=== PATIENT | female | born 1955 | race Caucasian/White ===

== ENCOUNTER 2018-08-07 20:21 | Emergency (ER) | payer MEDICAID ==
[~2018-08-07] VITALS: Ht 144.8 cm; Wt 65.9 kg
[2018-08-07 20:57] VITALS: Ht 144.8 cm; Wt 65.9 kg
[2018-08-07] MEDS ORDERED: SOD CHLORIDE 0.9% 1,000 ML IV STA (21:18)
[2018-08-07] MEDS ORDERED: MECLIZINE 12.5 MG TAB PO ONE (21:30)
[2018-08-07] MEDS ORDERED: MECL12.574 PO (22:31)
--- NOTE | 2018-08-07 22:33 | ERD ---
ER Documentation Chief Complaint Chief Complaint dizziness/nausea x 2 hours. also c/o headache. HPI Patient is a 63-year-old female with no medical problems who presents with dizziness. She felt like the room was spinning. Her blood pressure was 139/87 at home. The family called 911. She was having trouble getting off the couch because of the dizziness. The patient was brought in by ambulance. The patient's symptoms started at 6 PM. Upon review of old medical records this is the patient's first visit to the emergency department. She does not currently have a primary doctor. ROS All systems reviewed and are negative except as per history of present illness. Medications Home Meds Active Scripts Meclizine Hcl* (Antivert*) 12.5 Mg Tab, 25 MG PO Q6H PRN for DIZZINESS, #20 TAB Prov:SERGO CANTU MD 08/07/18 Allergies Allergies: Coded Allergies: No Known Drug Allergies (Verified Allergy, Unknown, 08/07/18) PMhx/Soc Medical and Surgical Hx: pt denies Medical Hx History of Surgery: Yes (APPENDECTOMY) Hx Alcohol Use: No Hx Substance Use: No Hx Tobacco Use: No Smoking Status: Never smoker FmHx Family History: No diabetes Physical Exam Vitals Vital Signs Date Temp Pulse Resp B/P (MAP) Pulse Ox O2 O2 Flow FiO2 Time Delivery Rate 08/07/18 93 20 120/77 100 Room Air 23:04 (91) 08/07/18 98.1 93 18 162/89 99 20:57 (113) Physical Exam Const: No acute distress Head: Atraumatic Eyes: Normal Conjunctiva ENT: Normal External Ears, Nose and Mouth. Neck: Full range of motion. No meningismus. Resp: Clear to auscultation bilaterally Cardio: Regular rate and rhythm, no murmurs Abd: Soft, non tender, non distended. Normal bowel sounds Skin: No petechiae or rashes Back: No midline or flank tenderness Ext: No cyanosis, or edema Neur: Awake and alert, no slurred speech, cranial nerves II through XII intact, strength is 5 out of 5 in all 4 extremities Psych: Normal Mood and Affect Result Diagram: 08/07/18212408/07/182124 Results 24 hrs Laboratory Tests Test 08/07/18 21:25 White Blood Count 9.6 10^3/ul Red Blood Count 4.77 10^6/ul Hemoglobin 14.3 g/dl Hematocrit 41.7 % Mean Corpuscular Volume 87.4 fl Mean Corpuscular Hemoglobin 30.0 pg Mean Corpuscular Hemoglobin Concent 34.3 g/dl Red Cell Distribution Width 12.3 % Platelet Count 197 10^3/UL Mean Platelet Volume 11.2 fl Immature Granulocytes % 0.400 % Neutrophils % 81.0 % Lymphocytes % 14.8 % Monocytes % 2.6 % Eosinophils % 0.7 % Basophils % 0.5 % Nucleated Red Blood Cells % 0.0 /100WBC Immature Granulocytes # 0.040 10^3/ul Neutrophils # 7.7 10^3/ul Lymphocytes # 1.4 10^3/ul Monocytes # 0.3 10^3/ul Eosinophils # 0.1 10^3/ul Basophils # 0.1 10^3/ul Nucleated Red Blood Cells # 0.0 10^3/ul Prothrombin Time 12.1 Sec Prothrombin Time Ratio 0.9 INR International Normalized Ratio 0.89 Activated Partial Thromboplast Time 28.3 Sec Sodium Level 143 mmol/L Potassium Level 3.7 mmol/L Chloride Level 102 mmol/L Carbon Dioxide Level 27 mmol/L Anion Gap 14 Blood Urea Nitrogen 20 mg/dl Creatinine 0.48 mg/dl Est Glomerular Filtrat Rate mL/min > 60 mL/min Glucose Level 117 mg/dl Calcium Level 9.9 mg/dl Troponin I < 0.012 ng/ml Current Medications Medications Dose Sig/Nelsy Start Time Status Last (Trade) Ordered Route PRN Stop Time Admin Dose Reason Admin Sodium 1,000 ml @ Q1H STAT 08/07/18 DC 08/07/18 Chloride 1,000 mls/hr IV 21:18 21:29 08/07/18 22:17 Meclizine 25 mg ONCE ONCE 08/07/18 DC 08/07/18 HCl PO 21:30 21:29 (Antivert) 08/07/18 21:31 Procedures/MDM EKG read by me: Rate/Rhythm: Regular rate and rhythm at a rate of 80 Intervals: Normal Impression: No evidence of ischemia or arrhythmia CT brain negative per radiology. Patient is a 63-year-old female who presents with a feeling of room spinning. Laboratory studies and CT scan are negative. EKG shows no signs of ischemia. I doubt stroke, intra-cranial mass, or hemorrhage. The patient will be discharged with a prescription for meclizine. She feels better after meclizine. She will need to follow-up with the local clinics within 24-48 hours. Departure Diagnosis: Primary Impression: Dizziness Condition: Fair Patient Instructions: Dizziness, Unk Cause Referrals: COMMUNITY CLINICS YOU HAVE RECEIVED A MEDICAL SCREENING EXAM AND THE RESULTS INDICATE THAT YOU DO NOT HAVE A CONDITION THAT REQUIRES URGENT TREATMENT IN THE EMERGENCY DEPARTMENT. FURTHER EVALUATION AND TREATMENT OF YOUR CONDITION CAN WAIT UNTIL YOU ARE SEEN IN YOUR DOCTORS OFFICE WITHIN THE NEXT 1-2 DAYS. IT IS YOUR RESPONSIBILITY TO MAKE AN APPOINTMENT FOR FOL-UP CARE. IF YOU HAVE A PRIMARY DOCTOR --you should call your primary doctor and schedule an appointment IF YOU DO NOT HAVE A PRIMARY DOCTOR YOU CAN CALL OUR PHYSICIAN REFERRAL HOTLINE AT IF YOU CAN NOT AFFORD TO SEE A PHYSICIAN YOU CAN CHOSE FROM THE FOLLOWING [facility] [address]. [facility] [address] [facility] [facility] [address] [facility] [facility] [address] [facility]. [facility] [address] [facility]. [facility]. [address] Additional Instructions: Call your primary care doctor TOMORROW for an appointment during the next 1-2 days.See the doctor sooner or return here if your condition worsens before your appointment time. SERGO CANTU MD Aug 07, 2018 22:33
[2018-08-07 23:04] VITALS: BP 120/77; PULSE 93; RESP 20
== END 2018-08-07 23:10 | disposition home or self-care (01) ==
LOC: E/R 20:21
DX: R42 Dizziness and giddiness (principal); R40.2142 Coma scale, eyes open, spontaneous, at arrival to emergency department; R40.2252 Coma scale, best verbal response, oriented, at arrival to emergency department; R40.2362 Coma scale, best motor response, obeys commands, at arrival to emergency department; R11.2 Nausea with vomiting, unspecified
CPT/HCPCS: 36415; 70450; 80048; 84484; 85025; 85610; 85730; 93005; J7030; Z7502; Z7610